=== PATIENT | female | born 1940 | race Caucasian/White ===

== ENCOUNTER → 2020-07-21 | Outpatient (CLI) | payer OTHER, BC | LOC: SJCVCIMAG 14:27 | PROVIDERS: ATTEND Nuclear Medicine Nuclear Cardiology | DX: I73.9 Peripheral vascular disease, unspecified (principal); M79.671 Pain in right foot; M71.22 Synovial cyst of popliteal space [Baker], left knee; I73.00 Raynaud's syndrome without gangrene ==